=== PATIENT | male | born 1945 | race Caucasian/White ===

== ENCOUNTER 2016-10-16 12:59 | Inpatient (IN) | payer MEDICARE ==
[~2016-10-16] VITALS: Ht 172.7 cm; Wt 61.2 kg
[2016-10-16 13:40] LABS: MCH 42.7 pg (26.0-34.0); MCHC 36.8 g/dL (31.0-37.0); MCV 115.9 fL (80.0-100.0); MEAN PLATELET VOLUME 9.9 fL (7.4-10.4); PLATELET COUNT 61 10x3/uL (130-400); RDW 16.9 % (11.5-14.5)
[2016-10-16 13:57] LABS: RBC 1.57 10x6/uL (4.20-6.10)
[2016-10-16 13:58] LABS: HEMATOCRIT 18.2 % (42.0-54.0); HEMOGLOBIN 6.7 g/dL (13.5-17.5)
[2016-10-16 14:05] LABS: ALBUMIN 4.2 g/dL (3.4-5.0); ALKALINE PHOSPHATASE 70 U/L (46-116); ALT (SGPT) 26 U/L (10-68); CALC OSMOLALITY 285 mosm/kg (275-300); CALCIUM 8.3 mg/dL (8.5-10.1); CARBON DIOXIDE 26.1 mmol/L (21.0-32.0); CHLORIDE - SERUM 105 mmol/L (98-107); CREATININE - SERUM 1.2 mg/dL (0.6-1.3); GLUCOSE 111 mg/dL (74-106); POTASSIUM - SERUM 4.3 mmol/L (3.5-5.1); PROTEIN - SERUM 6.5 g/dL (6.4-8.2); SODIUM 141 mmol/L (136-145); UREA NITROGEN 25 mg/dL (7-18); eGFR NON AFRICAN AMERICAN 63 mL/min (90-120)
[2016-10-16 14:06] LABS: TROPONIN-I < 0.017 ng/mL (0.000-0.060)
[2016-10-16 14:15] LABS: BASOPHILS 1 % (0.0-2.0); EOSINOPHILS 8 % (0-7); HYPER SEGMENTED NEUTROPHILS OCC; LYMPHOCYTES 21 % (15-50); MONOCYTES 1 % (2-11); NEUTROPHILS 69 % (40-80); PLATELET ESTIMATE DECREASED
[2016-10-16 14:17] LABS: ANISOCYTOSIS 1+; POIKILOCYTOSIS 1+
[2016-10-16 15:46] LABS: APPEARANCE CLEAR (CLEAR); BACTERIA FEW /hpf (NONE SEEN); BILIRUBIN NEGATIVE (NEGATIVE); COLOR DK YELLOW (YELLOW); EPITHELIAL CELLS 0-5 /hpf (0-5); GLUCOSE NEGATIVE (NEGATIVE); HYALINE CAST 0-5 /lpf (NONE SEEN); KETONE NEGATIVE (NEGATIVE); LEUKOCYTE ESTERASE TRACE (NEGATIVE); MUCUS <1+ /lpf (NONE SEEN); NITRITE NEGATIVE (NEGATIVE); PROTEIN NEGATIVE (NEGATIVE); RED CELLS - URINE 0-5 /hpf (0-5); SPECIFIC GRAVITY 1.015 (1.005-1.020); WHITE CELLS - URINE 0-5 /hpf (0-5)
[2016-10-16 18:17] VITALS: BP 178/70; BMI 20.5
--- NOTE | 2016-10-16 18:37 | NUR ---
RECD TO ROOM 2223 VIA CART FROM ER S/O COLOR PALE SKIN WARM AND DRY PLAN OF CARE GONE OVER WITH PT.
[2016-10-16 21:54] VITALS: BP 141/60
--- NOTE | 2016-10-16 23:42 | NUR ---
PT IS AWAKE WITH BLOOD JUST COMPLETED AMD IS FLUSHING NOW. HE HAS THE VITAL SIGN MACHINE STILL IN PLACE AND HIS TV IS ON FOR ENTERTAINMENT. THE BED IS LOW, RAILS UP X'S 2 WITH THE CALL LIGHT AT HAND.
[2016-10-17] VITALS (24 sets, daily range): BP systolic 101–146; BP diastolic 46–76; Ht 172.7 cm; Wt 61.2 kg
[2016-10-17 06:31] LABS: BASOPHILS 0.5 % (0.0-2.0); EOSINOPHILS 11.6 % (0-7); LYMPHOCYTES 32.9 % (15-50); MCH 37.7 pg (26.0-34.0); MCHC 36.9 g/dL (31.0-37.0); MEAN PLATELET VOLUME 10.2 fL (7.4-10.4); MONOCYTES 4.3 % (2-11); NEUTROPHILS 50.7 % (40-80); PLATELET COUNT 58 10x3/uL (130-400); WBC 2.1 10x3/uL (4.8-10.8)
[2016-10-17 07:07] LABS: ALBUMIN 3.4 g/dL (3.4-5.0); ANION GAP 13.6 mmol/L (8-16); BILIRUBIN - TOTAL 1.8 mg/dL (0.2-1.3); CALCIUM 8.3 mg/dL (8.5-10.1); CARBON DIOXIDE 24.7 mmol/L (21.0-32.0); CREATININE - SERUM 1.2 mg/dL (0.6-1.3); POTASSIUM - SERUM 4.3 mmol/L (3.5-5.1); PROTEIN - SERUM 5.7 g/dL (6.4-8.2)
[2016-10-17 07:45] LABS: HEMATOCRIT 23.3 % (42.0-54.0); HEMOGLOBIN 8.6 g/dL (13.5-17.5); MCV 102.2 fL (80.0-100.0); RBC 2.28 10x6/uL (4.20-6.10)
[2016-10-17 07:48] LABS: APTT 32.3 SECONDS (22.8-39.4); INR 1.17 (0.85-1.17); PROTIME 14.8 SECONDS (11.6-15.0)
--- NOTE | 2016-10-17 07:55 | NUR ---
RESTING IN BED, FAMILY AT BEDSIDE, WAITING ON THE DR, DENIES NEEDS, CALL LIGHT IN REACH, BED LOWEST POSITION, WILL CONTINUE TO MONITOR
--- NOTE | 2016-10-17 11:00 | NUR ---
JUST LEFT FOR A CT BONE BIOPSY
[2016-10-17 13:16] LABS: FOLATE (FOLIC ACID) - SERUM >20.0 ng/mL (>3.0)
--- NOTE | 2016-10-17 13:30 | NUR ---
RESTING QUIETLY IN BED. FAMILY IN ROOM. NO C/O PAIN OR DISCOMFORT. REPORTS FEELING SOMEWHAT IMPROVED AFTER BLOOD LAST PM. DENIES NEEDS.
--- NOTE | 2016-10-17 18:52 | NUR ---
CURRENTLY RECIEVING FIRST UNIT OF BLOOD, VITALS STABLE, TOLERATING WELL, DENIES NEEDS, CALL LIGHT IN REACH, BED LOWEST POSITION
--- NOTE | 2016-10-17 19:20 | NUR ---
PT RESTING QUIETLY, RESP EVEN AND UNLABORED. 1ST UNIT OF PRBC FINISHING UP. NO S/S OF DISTRESS NOTED. VSS. BED IN LOWEST POSITION, CALL LIGHT IN REACH, ASSESSMENT PER FLOWSHEET.
--- NOTE | 2016-10-17 20:30 | NUR ---
2ND UNIT PRBC STARTED. INTIATED BY WILFREDO NESS. VSS,WILL CONITNUE TO MONITOR.
--- NOTE | 2016-10-17 23:30 | NUR ---
PRBC COMPLETE. VSS. IV DISCONNECTED, FLUSHED WITH NS AND LOCKED WITH SWAB CAP IN PLACE.
[2016-10-18] VITALS: BP 151/61
--- NOTE | 2016-10-18 02:15 | NUR ---
PT RESTING QUIETLY, BREATHING EVEN AND UNLABORED ON ROOM AIR. NO S/S OF DISTRESS NOTED. CALL LIGHT IN REACH. WILL CONITNUE TO MONITOR.
--- NOTE | 2016-10-18 04:37 | NUR ---
PATIENT SLEEPING ON SIDE. NO VISIBLE SIGNS OF DISTRESS. BED IN LOWEST POSITION AND CALL LIGHT WITHIN REACH.
[2016-10-18 05:26] VITALS: BP 163/61
[2016-10-18 07:11] LABS: BASOPHILS 0.4 % (0.0-2.0); EOSINOPHILS 13.8 % (0-7); HEMOGLOBIN 10.7 g/dL (13.5-17.5); LYMPHOCYTES 26.8 % (15-50); MCHC 35.7 g/dL (31.0-37.0); MCV 95.2 fL (80.0-100.0); MONOCYTES 4.3 % (2-11); NEUTROPHILS 54.7 % (40-80); PLATELET COUNT 52 10x3/uL (130-400); RBC 3.15 10x6/uL (4.20-6.10); RDW 26.9 % (11.5-14.5); WBC 2.8 10x3/uL (4.8-10.8)
[2016-10-18 07:22] LABS: ALBUMIN 3.4 g/dL (3.4-5.0); ANION GAP 11.2 mmol/L (8-16); BILIRUBIN - TOTAL 1.5 mg/dL (0.2-1.3); CALCIUM 8.1 mg/dL (8.5-10.1); CARBON DIOXIDE 24.8 mmol/L (21.0-32.0); CREATININE - SERUM 1.1 mg/dL (0.6-1.3); PROTEIN - SERUM 5.8 g/dL (6.4-8.2)
--- NOTE | 2016-10-18 08:10 | NUR ---
DENIES NEEDS, DAUGHTER CALLED BUT NO PASSWORD SET UP, I SET PASSWORD UP WITH HIM ITS IRMA HE IS GOING TO TELL HIS FAMILY, CALL LIGHT IN REACH BED LOWEST POSITION
[2016-10-18 08:30] VITALS: BP 153/69
--- NOTE | 2016-10-18 11:45 | NUR ---
PATIENT SITTING UP ON SIDE OF BED ALERT. NO SIGNS OF DISTRESS NOTED. BED IN LOW POSITION. CALL LIGHT IN REACH.
[2016-10-18 12:54] VITALS: BP 141/77
--- NOTE | 2016-10-18 16:52 | NUR ---
DISCHARGE PAPERS AND INSTRUCTIONS GIVEN TO PATIENT AND DAUGHTER, QUESTIONS ANSWERED, IV'S REMOVED WITH TIPS INTACT, COVERED WITH GAUZE AND BANDAID. DISCHARGED PER WC WITH BELONGINGS
--- NOTE | 2016-10-19 10:14 | DS ---
PATIENT:ALANA PATRICK :41 MEDICAL RECORD: [id number] DISCHARGE SUMMARY ADMISSION DATE: 10/16/16 DISCHARGE DATE: 10/18/16 HOSPITAL COURSE: Mr. Patrick is a 71-year-old white male, who presents to the Emergency Room with fatigue and weakness. He was found to be severely anemic, actually has a pancytopenia. His initial labs showed a CBC at 2.0, H&H of 6.7 and 18.2 with a platelet count of 61,000. His urinalysis was okay. Chest x-ray was okay. He has not been to a doctor in over 20 years. 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 He is establishing with the PCP in [place]. He was transfused with red cells. He required no platelets. He was seen in consultation by Dr. Avina and underwent a bone marrow biopsy on the . At this point, we are just awaiting results of the bone marrow. He is going be discharged to home and will follow up with Dr. Avina next . He can follow up with a bone marrow results and will also have the results of the MRI at that time. INITIAL DIAGNOSES: Pancytopenia and chronic leg wound. DISCHARGE DIAGNOSES: Pancytopenia and chronic leg wound. TRANSINT:[id number] Voice Confirmation ID: [id number] DOCUMENT ID: [id number] LENORA FAY DO at 1014 CC: [id number] DICTATION DATE: 10/18/16 1332 BUSINESS ASSOCIATE: 10/19/16 0958 DIS IN 10/18/[address] [address]
== END 2016-10-18 16:54 | disposition home or self-care (01) | DRG 810 ==
LOC: D.ER 12:59 → D.MS 15:59
PROVIDERS: Family Medicine; Radiology Diagnostic Radiology; ADMIT Family Medicine
PROC: 07DR3ZX Extraction of Iliac Bone Marrow, Percutaneous Approach, Diagnostic (ICD-10-PCS; principal; 2016-10-17 10:50)
DX: D61.818 Other pancytopenia (principal); R53.1 Weakness; R53.83 Other fatigue; S81.801D Unspecified open wound, right lower leg, subsequent encounter; R31.9 Hematuria, unspecified; R20.0 Anesthesia of skin

== ENCOUNTER 2016-12-30 21:08 | Emergency (ER) | payer MEDICARE ==
[2016-10-17 12:54] VITALS: BMI 20.5
[2016-12-30 21:56] LABS: HEMATOCRIT 23.3 % (42.0-54.0); HEMOGLOBIN 8.2 g/dL (13.5-17.5); MCH 37.4 pg (26.0-34.0); MCHC 35.2 g/dL (31.0-37.0); MCV 106.4 fL (80.0-100.0); MEAN PLATELET VOLUME 9.9 fL (7.4-10.4); RBC 2.19 10x6/uL (4.20-6.10)
[2016-12-30 22:00] LABS: PLATELET COUNT 67 10x3/uL (130-400)
[2016-12-30 22:12] LABS: ALBUMIN 3.8 g/dL (3.4-5.0); ALKALINE PHOSPHATASE 75 U/L (46-116); ALT (SGPT) 32 U/L (10-68); BILIRUBIN - TOTAL 0.98 mg/dL (0.2-1.3); CALC OSMOLALITY 282 mosm/kg (275-300); CALCIUM 8.4 mg/dL (8.5-10.1); CARBON DIOXIDE 26.8 mmol/L (21.0-32.0); CHLORIDE - SERUM 107 mmol/L (98-107); GLUCOSE 104 mg/dL (74-106); POTASSIUM - SERUM 4.9 mmol/L (3.5-5.1); PROTEIN - SERUM 6.4 g/dL (6.4-8.2); SODIUM 140 mmol/L (136-145); UREA NITROGEN 25 mg/dL (7-18); eGFR NON AFRICAN AMERICAN 78 mL/min (90-120)
[2016-12-30 22:32] LABS: APPEARANCE CLEAR (CLEAR); BILIRUBIN NEGATIVE (NEGATIVE); COLOR YELLOW (YELLOW); GLUCOSE NEGATIVE (NEGATIVE); KETONE NEGATIVE (NEGATIVE); LEUKOCYTE ESTERASE NEGATIVE (NEGATIVE); NITRITE NEGATIVE (NEGATIVE); PROTEIN NEGATIVE (NEGATIVE); SPECIFIC GRAVITY 1.015 (1.005-1.020); UROBILINOGEN NORMAL (NORMAL)
[2016-12-30 22:46] LABS: EOSINOPHILS 7 % (0-7); LYMPHOCYTES 22 % (15-50); NEUTROPHILS 72 % (40-80); PLATELET ESTIMATE DECREASED
[2017-01-01] MEDS ORDERED: BLOOD PRESSURE PO (10:34)
== END 2016-12-31 00:41 | disposition home or self-care (01) ==
LOC: D.ER 21:08
PROVIDERS: Emergency Medicine
DX: R53.1 Weakness (principal); C95.90 Leukemia, unspecified not having achieved remission; I10 Essential (primary) hypertension

== ENCOUNTER 2017-01-01 09:48 | Outpatient (CLI) | payer MEDICARE ==
[~2017-01-01] VITALS: Ht 172.7 cm; Wt 58.6 kg
[2017-01-01] MEDS ORDERED: BLOOD PRESSURE PO (10:34)
[2017-01-01 10:45] VITALS: BP 93/46; Ht 172.7 cm; Wt 58.6 kg
--- NOTE | 2017-01-01 16:52 | NUR ---
1615--IV DC'D. PAU VILLALOBOS 1630--DISCHARGE INSTRUCTIONS GIVEN, PT VERBALIZES UNDERSTANDING. PT OFF UNIT VIA WC. PAU VILLALOBOS
== END 2017-01-01 16:30 | disposition home or self-care (01) ==
LOC: D.OPS 09:48
DX: D46.Z Other myelodysplastic syndromes (principal)

== ENCOUNTER → 2017-02-09 11:32 | Outpatient (CLI) | payer MEDICARE ==
[2017-01-01 10:45] VITALS: BMI 19.6
[~2017-02-09 11:32] MED LIST: BLOOD PRESSURE PO
[2017-02-09 12:19] LABS: HEMOGLOBIN A1C 4.9 % (4.8-6.0)
[2017-02-09 12:32] LABS: ALBUMIN 3.8 g/dL (3.4-5.0); ANION GAP 14.4 mmol/L (8-16); BILIRUBIN - TOTAL 0.99 mg/dL (0.2-1.3); CARBON DIOXIDE 25.9 mmol/L (21.0-32.0); CREATININE - SERUM 1.4 mg/dL (0.6-1.3); POTASSIUM - SERUM 5.3 mmol/L (3.5-5.1); PROTEIN - SERUM 6.7 g/dL (6.4-8.2); T4 THYROXINE 10.5 ug/dL (4.7-13.3); THYROID STIMULATING HORMONE 2.23 uIU/mL (0.36-3.74)
[2017-02-10 06:13] LABS: RAPID PLASMA REAGIN Non Reactive (Non Reactive)
[2017-02-10 07:52] LABS: FOLATE (FOLIC ACID) - SERUM 16.4 ng/mL (>3.0)
== END | disposition home or self-care (01) ==
LOC: D.MRI 11:32
PROVIDERS: Psychiatry & Neurology Neurology
DX: N31.9 Neuromuscular dysfunction of bladder, unspecified (principal); G60.9 Hereditary and idiopathic neuropathy, unspecified; G57.30 Lesion of lateral popliteal nerve, unspecified lower limb; R09.89 Other specified symptoms and signs involving the circulatory and respiratory systems